=== PATIENT | female | born 1980 | race African-American/Black ===

== ENCOUNTER 2016-05-02 16:41 | Emergency (ER) | payer MEDICAID, OTHER ==
[~2016-05-02] VITALS: Ht 167.6 cm; Wt 93.0 kg
[~2016-05-02 16:41] MED LIST: BACT800T5 PO; CEPH500C3 PO; IBUP800T23 PO; LOSA50TA PO
[2016-05-02 16:57] VITALS: BP 150/98; PULSE 81; RESP 18; TEMP 98; O2SAT 100
[2016-05-02] MEDS ORDERED: LOSA25TA PO (16:57)
--- NOTE | 2016-05-02 17:11 | PD ---
HPI Chief Complaint: Numbness/Tingling Time Seen by Provider: 17:04 Travel History International Travel<30 days: No Contact w/Intl Traveler<30days: No Traveled to known affect area: No History of Present Illness HPI 36-year-old female complains of left-sided facial, left sided neck, left arm left leg numbness. Patient states that the symptoms started around 9:00 this morning. Patient denies any headache. Patient denies any visual change. Patient denies any neck pain. Patient denies any chest pain or shortness of breath. Patient denies abdominal pain. Patient denies any focal weakness of the extremity. Patient denies any recent injury. Patient has history hypertension and on medication for that. Patient denies any history diabetes, dyslipidemia. Patient is a nonsmoker. Patient has family history of CVA. Patient denies any history alcohol or illicit drug abuse. PFSH Past Medical History Anxiety: Yes Diminished Hearing: No Hypertension: Yes Immunizations Current: Yes Migraines: Yes Influenza Vaccination: Yes ?: Not : 2 Para: 2 Past Surgical History Section: Yes (X's 2) Ear Surgery: Yes Genitourinary Surgery: Yes (Laproscopic, polyps removed from uterus) Hysterectomy: Yes Social History Alcohol Use: No Tobacco Use: No Substance Use: No Allergies-Medications (Allergen,Severity, Reaction): Coded Allergies: Tramadol (Verified Allergy, Intermediate, Itching, 08/07/15) Reported Meds & Prescriptions Reported Meds & Active Scripts Active Reported Losartan (Losartan Potassium) 25 Mg Tab 10 Mg PO DAILY Review of Systems General / Constitutional: No: Fever Eyes: No: Visual changes HENT: No: Headaches Cardiovascular: No: Chest Pain or Discomfort Respiratory: No: Shortness of Breath Gastrointestinal: No: Abdominal Pain Genitourinary: No: Dysuria Musculoskeletal: No: Pain Skin: No Rash Neurologic: Positive: Paresthesia, No: Weakness Psychiatric: No: Depression Endocrine: No: Polydipsia Hematologic/Lymphatic: No: Easy Bruising Physical Exam Narrative GENERAL: Well-nourished, well-developed patient. SKIN: Warm and dry. HEAD: Normocephalic. EYES: No scleral icterus. No injection or drainage. NECK: Supple, trachea midline. No JVD or lymphadenopathy. CARDIOVASCULAR: Regular rate and rhythm without murmurs, gallops, or rubs. RESPIRATORY: Breath sounds equal bilaterally. No accessory muscle use. GASTROINTESTINAL: Abdomen soft, non-tender, nondistended. MUSCULOSKELETAL: No cyanosis, or edema. BACK: Nontender without obvious deformity. No CVA tenderness. Neurologic exam: Patient is awake and alert oriented 3. Patient has mild decrease in light touch sensation on the low part her face, left sided neck, left arm and left leg. Sensory function intact on the chest and abdomen. Data Data Last Documented VS Vital Signs Date Time Temp Pulse Resp B/P Pulse Ox O2 Delivery O2 Flow Rate FiO2 05/02/16 17:28 84 18 159/107 100 Room Air 05/02/16 16:57 98.0 Orders Complete Blood Count With Diff (05/02/16 17:04) Comprehensive Metabolic Panel (05/02/16 17:04) Prothrombin Time / Inr (Pt) (05/02/16 17:04) Act Partial Throm Time (Ptt) (05/02/16 17:04) Thyroid Stimulating Hormone (05/02/16 17:04) Iv Access Insert/Monitor (05/02/16 17:04) Ecg Monitoring (05/02/16 17:04) Oximetry (05/02/16 17:04) Ed Urine Pregnancytest Poc (05/02/16 17:04) Mri Brain W/O Contrast (05/02/16 17:12) Mra Brain W/O Contrast (Cow) (05/02/16 17:12) Mra Carotids W Contrast (05/02/16 17:12) Electrocardiogram (05/02/16 ) Gadodiamide Pf Inj (Omniscan Pf Inj) (05/02/16 19:06) Labs Laboratory Tests Test 05/02/16 17:20 White Blood Count 7.9 TH/MM3 Red Blood Count 4.65 MIL/MM3 Hemoglobin 13.4 GM/DL Hematocrit 41.0 % Mean Corpuscular Volume 88.2 FL Mean Corpuscular Hemoglobin 28.9 PG Mean Corpuscular Hemoglobin 32.8 % Concent Red Cell Distribution Width 12.6 % Platelet Count 365 TH/MM3 Mean Platelet Volume 7.9 FL Neutrophils (%) (Auto) 56.2 % Lymphocytes (%) (Auto) 33.8 % Monocytes (%) (Auto) 7.9 % Eosinophils (%) (Auto) 1.1 % Basophils (%) (Auto) 1.0 % Neutrophils # (Auto) 4.4 TH/MM3 Lymphocytes # (Auto) 2.7 TH/MM3 Monocytes # (Auto) 0.6 TH/MM3 Eosinophils # (Auto) 0.1 TH/MM3 Basophils # (Auto) 0.1 TH/MM3 CBC Comment DIFF FINAL Differential Comment Prothrombin Time 10.7 SEC Prothromb Time International 1.0 RATIO Ratio Activated Partial 30.1 SEC Thromboplast Time Sodium Level 139 MEQ/L Potassium Level 3.6 MEQ/L Chloride Level 105 MEQ/L Carbon Dioxide Level 23.8 MEQ/L Anion Gap 10 MEQ/L Blood Urea Nitrogen 11 MG/DL Creatinine 0.77 MG/DL Estimat Glomerular Filtration 102 ML/MIN Rate Random Glucose 88 MG/DL Calcium Level 8.4 MG/DL Total Bilirubin 0.7 MG/DL Aspartate Amino Transf 15 U/L (AST/SGOT) Alanine Aminotransferase 21 U/L (ALT/SGPT) Alkaline Phosphatase 76 U/L Total Protein 7.9 GM/DL Albumin 3.7 GM/DL Thyroid Stimulating Hormone 1.270 uIU/ML 3rd [facility] Medical Decision Making Medical Screen Exam Complete: Yes Emergency Medical Condition: Yes Interpretation(s) 18 10 PM. CBC within normal limit. CMP within normal limit. TSH normal. 1942 PM. EKG shows sinus rhythm nonspecific ST-T wave change. MRA of the brain , MRI of the brain and carotid all within normal limit. Differential Diagnosis Differential diagnosis including neuralgia, TIA, CVA. Narrative Course 36-year-old female with left-sided facial numbness, left sided neck numbness, left arm left leg numbness. The symptoms started this morning. Diagnosis Primary Impression: Neuralgia Patient Instructions: General Instructions Additional Instructions: Aspirin daily. Follow-up with personal physician and neurologist. Return if worse. Med/Other Pt SpecificInfo: No Meds Exist/No RX given Disposition: 01 DISCHARGE HOME Condition: Stable Alessandro Alexis MD May 02, 2016 17:11
[2016-05-02 17:28] VITALS: BP 159/107; PULSE 84; RESP 18; O2SAT 100
[2016-05-02 17:29] LABS: AUTOMATED NEUTROPHIL # 4.4 TH/MM3 (1.8-7.7); BASOPHIL # 0.1 TH/MM3 (0-0.2); EOSINOPHIL # 0.1 TH/MM3 (0-0.4); EOSINOPHIL % 1.1 % (0.0-4.0); HEMO FLAGS DIFF FINAL; LYMPH % 33.8 % (9.0-44.0); LYMPHOCYTE # 2.7 TH/MM3 (1.0-4.8); MEAN CELL VOLUME 88.2 FL (80.0-100.0); MEAN CORPUSCULAR HEMOGLOBIN 28.9 PG (27.0-34.0); MEAN CORPUSCULAR HGB CONC 32.8 % (32.0-36.0); MONO % 7.9 % (0.0-8.0); NEUT % 56.2 % (16.0-70.0); PLATELET COUNT 365 TH/MM3 (150-450); RED BLOOD COUNT 4.65 MIL/MM3 (4.00-5.30); RED CELL DISTRIBUTION WIDTH 12.6 % (11.6-17.2); WHITE BLOOD COUNT 7.9 TH/MM3 (4.0-11.0)
[2016-05-02 17:39] LABS: CHLORIDE 105 MEQ/L (98-107); POTASSIUM 3.6 MEQ/L (3.5-5.1); SODIUM (NA) 139 MEQ/L (136-145)
[2016-05-02 17:43] LABS: ANION GAP 10 MEQ/L (5-15); BICARBONATE 23.8 MEQ/L (21.0-32.0); BLOOD UREA NITROGEN 11 MG/DL (7-18)
[2016-05-02 17:44] LABS: APTT (PATIENT) 30.1 SEC (24.3-30.1); PROTHROMBIN TIME - PATIENT 10.7 SEC (9.8-11.6)
[2016-05-02 17:46] LABS: ALT (GPT) 21 U/L (10-53); AST (GOT) 15 U/L (15-37); GLOMERULAR FILTRATION RATE 102 ML/MIN (>89)
[2016-05-02 17:48] LABS: TOTAL BILIRUBIN ADULT 0.7 MG/DL (0.2-1.0)
[2016-05-02 17:49] LABS: ALKALINE PHOSPHATASE 76 U/L (45-117)
[2016-05-02] MEDS ORDERED: GADODIAMIDE PF 287 MG/ML 20 ML VIAL (for RAD MRI) IV ONE (19:06)
--- NOTE | 2016-05-02 19:10 | RADHPO ---
EXAM DATE/TIME: 05/02/2016 19:09 [facility] COMPARISON: No previous studies available for comparison. INDICATIONS : Left sided weakness. MEDICAL HISTORY : Hypertension. SURGICAL HISTORY : Hysterectomy. ENCOUNTER: Initial ACUITY: 1 day PAIN SCORE: 0/10 LOCATION: cranial Please note a normal MRA of the brain does not entirely exclude the possibility of a small aneurysm, nor the possibility of distal intracranial vessel disease. TECHNIQUE: 3D time of flight MRA was performed. Source images, multiplanar STS MIP, and 3D volume MIP reconstru ctions were reviewed. FINDINGS: There is excellent visualization of the major intracranial arteries out to the second-order branch ve ssels. There is no evidence for aneurysm, vessel truncation or stenosis, and no evidence for vascula r malformation. CONCLUSION: Normal intracranial arteries. Myron Santoyo MD on May 02, 2016 at 19:07 Board Certified Radiologist. This report was verified electronically.
--- NOTE | 2016-05-02 19:12 | RADHPO ---
EXAM DATE/TIME: 05/02/2016 19:09 [facility] COMPARISON: No previous studies available for comparison. INDICATIONS : Left sided weakness. MEDICAL HISTORY : Hypertension. SURGICAL HISTORY : Hysterectomy. ENCOUNTER: Initial ACUITY: 1 day PAIN SCORE: 0/10 LOCATION: cranial TECHNIQUE: Multiplanar, multisequence MRI of the brain was performed without contrast. FINDINGS: CEREBRUM: The ventricles are normal for age. No evidence of midline shift, mass lesion, hemorrhage or acute in farction. No extraaxial fluid collections are seen. The pituitary gland and suprasellar cistern are normal in configuration. WHITE MATTER: No significant signal abnormalities are seen in the white matter. POSTERIOR FOSSA: The cerebellum and brainstem are intact. The 4th ventricle is midline. The cerebellopontine angle is unremarkable. The cerebellar tonsils are normal in position. DIFFUSION IMAGING: No focal areas of restricted diffusion are seen. No evidence of acute infarction. EXTRACRANIAL: The visualized portions of the orbits and paranasal sinuses are unremarkable. CONCLUSION: Normal noncontrast MRI of the brain. Myron Santoyo MD on May 02, 2016 at 19:09 Board Certified Radiologist. This report was verified electronically.
--- NOTE | 2016-05-02 19:32 | RADHPO ---
EXAM DATE/TIME: 05/02/2016 19:09 [facility] COMPARISON: MRA BRAIN W/O CONTRAST, May 02, 2016, 19:09. INDICATIONS : Left sided weakness. CONTRAST: 20 cc Omniscan (gadodiamide) IV MEDICAL HISTORY : Hypertension. SURGICAL HISTORY : Hysterectomy. ENCOUNTER: Initial ACUITY: 1 day PAIN SCORE: 0/10 LOCATION: cranial Percent stenosis is calculated using the diameter of the stenotic region over the diameter of the nor mal distal internal carotid artery. TECHNIQUE: Bolus infused MRA of the extracranial circulation was performed using a neurovascular coil. Post pro cessing was performed including rotating subvolume maximum intensity projections of each carotid odin ry, rotating full volume maximum intensity projections of both carotid arteries, sagittal and coronal sliding thin slab reformations of each carotid artery, and left oblique sliding thin slab reformatio n through the aortic arch to include the origin of the arch branch vessels. FINDINGS: AORTIC ARCH: There is a three vessel origin of the great vessels from the aorta. No evidence of ostial narrowing. RIGHT CAROTID: The common carotid artery is intact. The carotid bulb has a normal configuration without ulceration or narrowing. The internal carotid artery lumen is smooth without stenosis. The external carotid ar donna is intact. LEFT CAROTID: The common carotid artery is intact. The carotid bulb has a normal configuration without ulceration or narrowing. The internal carotid artery lumen is smooth without stenosis. The external carotid ar donna is intact. VERTEBRALS: The vertebral arteries have a symmetric diameter. No stenotic lesions are seen. CONCLUSION: Normal examination for a patient of this age. Gaurav Dodson MD on May 02, 2016 at 19:27 Board Certified Radiologist. This report was verified electronically.
[2016-05-02 20:42] VITALS: BP 142/99; PULSE 74; O2SAT 98
--- NOTE | 2016-05-03 15:00 | EKG ---
Date Performed: 05/02/2016 Time Performed: 19:32:06 PTAGE: 36 years EKG: Sinus rhythm Anterior T wave changes are borderline abnormal Low QRS voltages in precordial leads Borderline ECG Compared to prior tracing no significant change PREVIOUS TRACING : 05/17/2012 19.55 DOCTOR: Ximena Tuttle Interpretating Date/Time 05/03/2016 14:52:50
== END 2016-05-02 20:44 | disposition home or self-care (01) ==
LOC: PHED 16:41
DX: M79.2 Neuralgia and neuritis, unspecified (principal); I10 Essential (primary) hypertension; F41.9 Anxiety disorder, unspecified
CPT/HCPCS: 70544; 70548; 70551; 80053; 84443; 85025; 85610; 85730; 93005; 99284; A9579